=== PATIENT | male | born 1945 | race Caucasian/White ===

== ENCOUNTER → 2017-06-22 | Outpatient (CLI) | payer MEDICARE ==
[~2017-06-22] MED LIST: BUSP10TA3 PO; CARB-38 PO; CIPR-278 PO; DICL2100G TP; LUBI24CA2 PO; MELA5CAP PO; POLY119P17 PO; SENN8.8S10 PO; TOLT2TAB PO
== END | disposition home or self-care (01) ==
LOC: RAH 13:17
PROVIDERS: ATTEND Internal Medicine
DX: K59.00 Constipation, unspecified (principal)
CPT/HCPCS: 74018

== ENCOUNTER 2017-06-23 13:10 | Observation (INO) | payer MEDICARE ==
[~2017-06-23] VITALS: Ht 190.5 cm; Wt 71.4 kg
[2017-06-23 14:41] VITALS: BP 141/75
[2017-06-23] MEDS ORDERED: MELA5CAP PO ×2 (14:57)
[2017-06-23] MEDS ORDERED: BUSP10TA3 PO ×2 (14:57)
[2017-06-23] MEDS ORDERED: CARB-38 PO ×2 (14:57)
[2017-06-23] MEDS ORDERED: TOLT2TAB PO ×2 (14:57)
[2017-06-23] MEDS ORDERED: SENN8.8S10 PO ×2 (14:57)
[2017-06-23] MEDS ORDERED: DICL2100G TP ×2 (14:57)
[2017-06-23] MEDS ORDERED: LUBI24CA2 PO ×2 (14:57)
[2017-06-23] MEDS ORDERED: CIPR-278 PO (14:57)
[2017-06-23] MEDS ORDERED: ONDANSETRON HCL 4 MG/2 ML VIAL IV PRN (15:30)
[2017-06-23] MEDS ORDERED: LIDOCAINE HCL-MPF 1% 2ML VIAL IVP PRN (15:30)
[2017-06-23] MEDS ORDERED: POTASSIUM CHLORIDE 20MEQ/100ML 100 ML IV PRN (15:30)
[2017-06-23] MEDS ORDERED: LACTULOSE 20 GM/30 ML UDCUP PO PRN (15:30)
[2017-06-23] MEDS ORDERED: ACETAMINOPHEN 325 MG TAB PO PRN ×2 (15:30)
[2017-06-23] MEDS ORDERED: MAG HYDROX/AL HYDROX/SIMETH ES 30 ML SUSP UDCUP PO PRN (15:30)
[2017-06-23] MEDS ORDERED: POTASSIUM CHLORIDE 20 MEQ ERTAB PO PRN (15:30)
[2017-06-23] MEDS ORDERED: POTASSIUM CHLORIDE 10% ELIXIR 20 MEQ/15 ML UDCUP PO PRN (15:30)
[2017-06-23] MEDS ORDERED: BISACODYL 10 MG SUPP.RECT RC PRN (15:45)
[2017-06-23 15:47] LABS: HEMATOCRIT 37.4 % (42-54); MEAN CORPUSCULAR HEMOGLOBIN 30.4 pg (27.0-33.0); MEAN CORPUSCULAR HGB CONC 34.6 g/dL (32.0-36.0); MEAN CORPUSCULAR VOLUME 87.8 fL (79-99); PLATELET COUNT (AUTO) 207 K/uL (130-400); RED BLOOD CELL COUNT(AUTO) 4.26 MIL/uL (4.50-6.20); RED CELL DISTRIBUTION WIDTH 14.3 % (11.0-15.5)
[2017-06-23 15:56] LABS: CREATININE 0.9 mg/dL (0.5-1.5); POTASSIUM 4.7 mmol/L (3.5-5.1)
[2017-06-23 16:00] VITALS: BP 122/73
[2017-06-23] MEDS: SODIUM CHLORIDE 0.9% 1000ML 1,000 ML IV SCH (17:48)
[2017-06-23] MEDS ORDERED: MAGNESIUM CITRATE 296 ML SOLUTION PO SCH (18:45)
[2017-06-23 20:05] VITALS: BP 140/75
[2017-06-23] MEDS ORDERED: TOLTERODINE TARTRATE 4 MG PO SCH (21:00)
[2017-06-23] MEDS: **HM**Carbidopa/Levodopa (Carbidopa-Levo 25-100 mg Odt PO SCH (21:00)
[2017-06-23 23:50] VITALS: BP 120/71
[2017-06-24 03:25] VITALS: BP 100/62
[2017-06-24] MEDS: SODIUM CHLORIDE 0.9% 1000ML 1,000 ML IV SCH (04:12)
[2017-06-24 07:00] VITALS: BP 128/74
[2017-06-24] MEDS ORDERED: PEG 3350/NA SULF,BICARB,CL/KCL 4000 ML SOLN PO SCH (07:15)
[2017-06-24] MEDS ORDERED: BUSPIRONE HCL 5 MG TABLET PO SCH (09:00)
[2017-06-24] MEDS ORDERED: PANTOPRAZOLE SODIUM 40 MG TABLET.DR PO SCH (09:00)
[2017-06-24] MEDS: **HM**Carbidopa/Levodopa (Carbidopa-Levo 25-100 mg Odt PO SCH ×2 (09:00→12:01)
[2017-06-24 11:00] VITALS: BP 123/79
[2017-06-24] MEDS ORDERED: ACYCLOVIR 800 MG TABLET PO SCH (11:00)
[2017-06-24 16:00] VITALS: BP 142/85
[2017-06-24] MEDS ORDERED: POLY119P17 PO ×2 (16:52)
== END 2017-06-24 18:06 | disposition home or self-care (01) ==
LOC: EDH 13:10 → EDHIP 13:26 → 4BH 13:36
PROVIDERS: ADMIT Internal Medicine; ATTEND Internal Medicine
DX: K56.49 Other impaction of intestine (principal); K63.89 Other specified diseases of intestine; K21.9 Gastro-esophageal reflux disease without esophagitis; R13.10 Dysphagia, unspecified; G20 Parkinson's disease; F41.1 Generalized anxiety disorder; N31.9 Neuromuscular dysfunction of bladder, unspecified; K59.00 Constipation, unspecified; Z93.1 Gastrostomy status
CPT/HCPCS: 36415; 74018; 80048; 85027; 96360; 96361 ×2; 99285; G0378 ×29; J7030 ×2